=== PATIENT | male | born 1955 | race Caucasian/White ===

== ENCOUNTER 2024-07-07 16:04 | Inpatient (IN) | payer MEDICARE ==
[2024-07-07] MEDS ORDERED: Colestipol 1 GM TAB PO PRN (20:13)
[2024-07-07] MEDS: Atorvastatin Calcium 40 MG TAB PO SCH (21:37)
[2024-07-07] MEDS: ALPRAZolam 0.25 MG TAB PO SCH (21:37)
[2024-07-07] MEDS: Apixaban 5 MG TAB PO SCH (21:37)
[2024-07-07] MEDS: Gabapentin 300 MG CAP PO SCH (21:38)
[2024-07-07] MEDS: Ibuprofen 600 MG TAB PO SCH (21:40)
[2024-07-07] MEDS: Methocarbamol 500 MG TAB PO SCH (21:41)
[2024-07-07] MEDS: Senokot S 8.6-50 MG TAB PO SCH (21:44)
[2024-07-07] MEDS: Sotalol HCl 80 MG TAB PO SCH (21:45)
[2024-07-07] MEDS: Tamsulosin HCl 0.4 MG CAP PO SCH (21:45)
[2024-07-07] MEDS: Acetaminophen 325 MG TAB PO SCH (21:46)
[2024-07-07] MEDS: Transdermal Patch Removal TOP SCH (21:46)
[2024-07-08] MEDS: glipiZIDE XL 2.5 mg ER.TAB PO SCH (08:33)
[2024-07-08] MEDS: Aspirin Chewable 81 MG TAB PO SCH (08:33)
[2024-07-08] MEDS: dilTIAZem CD 120 MG CAP PO SCH (08:44)
[2024-07-08] MEDS: Pantoprazole DR 40 MG TAB PO SCH (08:44)
[2024-07-08] MEDS: Isosorbide Mononitrate 30 MG ER.TAB PO SCH (08:44)
[2024-07-08] MEDS: Calcium Carbonate 500 MG ChewTAB PO PRN (08:44)
[2024-07-08] MEDS: HYDROcodone/Acetaminophen 7.5/325 mg Tablet PO PRN (08:59)
[2024-07-08] MEDS: Lidocaine 4% Patch TD SCH (10:29)
[2024-07-08] MEDS: ISOTRETINOIN 40 MG PO SCH (12:53)
[2024-07-08] MEDS: DOXYCYCLINE HYCLATE 20 MG PO SCH (13:54)
[2024-07-08] MEDS: HYDROcodone/Acetaminophen 10/325 mg Tablet PO PRN (17:15)
[2024-07-09 05:06] LABS: Hematocrit 24.8 % (42.0-52.0); Hemoglobin 8.4 g/dL (14.0-18.0); Mean Corpuscular HGB CONC 33.7 g/dL (32.0-36.0); Mean Corpuscular Hemoglobin 31.5 pg (27.0-31.0); Mean Corpuscular Volume 93.6 fl (78.0-98.0); Platelet Count 199 10x3/uL (130-400); RBC Distribution Width 12.2 % (11.5-14.5); Red Blood Cell (RBC) Count 2.65 mill/uL (4.70-6.10); White Blood Cell (WBC) Count 6.3 10x3/uL (4.8-10.8)
[2024-07-09 05:20] LABS: Band 2 % (5-11); Eosinophils 4 % (0-10); Lymphocytes 24 % (21-51); MDiff Complete? YES; Monocytes 8 % (0-10); Neutrophil 62 % (42-75)
[2024-07-09 05:22] LABS: ALT (SGPT) 65 U/L (8-55); AST (SGOT) 50 U/L (5-34); Albumin 2.7 g/dL (3.4-4.8); Alkaline Phosphatase 56 U/L (40-110); Anion Gap 12 mmol/L (10-20); BUN (Urea Nitrogen) 22 mg/dL (8.4-25.7); Bilirubin, Total 0.6 mg/dL (0.2-1.2); Calc. Creatinine Clearance 98 mL/min (70-130); Calcium 8.3 mg/dL (7.8-10.44); Carbon Dioxide 22 mmol/L (23-31); Chloride 107 mmol/L (98-107); Estimated GFR 93; Globulin 2.7 g/dL (2.4-3.5); Glucose 139 mg/dL (80-115); Protein, Total 5.4 g/dL (5.8-8.1); Sodium 137 mmol/L (136-145)
[2024-07-10] MEDS ORDERED: Iopamidol 370 76% 100 ML VIAL ONE (09:00)
[2024-07-11] MEDS ORDERED: Acetaminophen 325 MG TAB PO PRN (10:03)
[2024-07-11] MEDS: Lidocaine 4% Patch TD SCH (13:49)
[2024-07-11] MEDS ORDERED: Polyethylene Glycol 3350 17 GM Packet PO PRN (18:31)
[2024-07-12] MEDS: HYDROcodone/Acetaminophen 10/325 mg Tablet PO SCH (21:53)
[2024-07-14] MEDS: traMADol HCl 50 MG TAB PO PRN (04:58)
[2024-07-16 05:29] LABS: Hematocrit 28.7 % (42.0-52.0); Hemoglobin 9.2 g/dL (14.0-18.0); Platelet Count 274 10x3/uL (130-400)
[2024-07-17] MEDS: Ferrous Gluconate 324 MG TAB PO SCH (08:09)
[2024-07-21] MEDS: Ondansetron ODT 4 MG TAB PO PRN (20:37)
[2024-07-22 09:13] LABS: Bilirubin Negative (Negative); Blood, Urine Large (Negative); Glucose, Urine (Dipstick) Negative (Negative); Ketone, Urine 15 mg/dL (Negative); Leukocyte Trace (Negative); Nitrite Positive (Negative); Protein, Urine (Dipstick) 30 mg/dL (Neg-Trace); Urobilinogen 0.2 mg/dL (Less than 2); pH, Urine 5.5 (5.0-9.0)
[2024-07-22 09:14] LABS: Clarity Cloudy (Clear)
[2024-07-22 09:24] LABS: WBC/HPF Greater Than 50 HPF (0-3)
[2024-07-22 09:25] LABS: Bacteria/HPF 3+ HPF (None Seen); Squamous Epithelial 0-3 HPF (0-3)
[2024-07-22] MEDS: Sulfameth/Trimethoprim DS 800-160mg TAB PO SCH ×2 (12:09→20:39)
[2024-07-25 07:17] VITALS: BP 100/58; TEMP 97.8
== END 2024-07-25 16:45 | disposition home health service (06) | DRG 93 ==
LOC: MADMS 19:21
PROVIDERS: ADMIT Family Medicine; ATTEND Family Medicine
PROC: F07Z9ZZ Gait Training/Functional Ambulation Treatment (ICD-10-PCS; principal; 2024-07-08)
DX: R26.89 Other abnormalities of gait and mobility (principal); R53.81 Other malaise; I10 Essential (primary) hypertension; E78.5 Hyperlipidemia, unspecified; E11.9 Type 2 diabetes mellitus without complications; I48.0 Paroxysmal atrial fibrillation; N40.0 Benign prostatic hyperplasia without lower urinary tract symptoms; D64.9 Anemia, unspecified; S22.49XD Multiple fractures of ribs, unspecified side, subsequent encounter for fracture with routine healing; Z79.82 Long term (current) use of aspirin; Z79.01 Long term (current) use of anticoagulants; Z79.02 Long term (current) use of antithrombotics/antiplatelets; Z79.899 Other long term (current) drug therapy; S87.81XD Crushing injury of right lower leg, subsequent encounter; S22.079D Unspecified fracture of T9-T10 vertebra, subsequent encounter for fracture with routine healing; Z95.0 Presence of cardiac pacemaker
CPT/HCPCS: 36415; 36416; 74178; 80053; 81001; 85014; 85018; 85025; 85049; 87077; 87086; 87186; Q0162; Q9967